=== PATIENT | male | born 1955 | race Native Hawaiian/Other Pacific Islander ===

== ENCOUNTER 2018-11-06 10:28 | Outpatient (CLI) | payer OTHER ==
[2018-11-06 10:55] LABS: PLATELET COUNT 281 K/uL (142-355)
[2018-11-06 11:27] LABS: POTASSIUM 3.6 mmol/L (3.6-5.2)
== END 2018-11-06 20:38 | disposition home or self-care (01) ==
LOC: LABW 10:28
PROVIDERS: Family Medicine
DX: E78.00 Pure hypercholesterolemia, unspecified (principal); K21.9 Gastro-esophageal reflux disease without esophagitis; I10 Essential (primary) hypertension; E55.9 Vitamin D deficiency, unspecified
CPT/HCPCS: 36415; 80053; 80061; 82306; 83735; 84154; 84439; 84443; 85027

== ENCOUNTER 2021-04-25 09:01 | Outpatient (CLI) | payer OTHER | END 2021-04-25 19:21 | disposition home or self-care (01) | LOC: LAB 09:01 | PROVIDERS: ATTEND Family Medicine | DX: Z20.822 Contact with and (suspected) exposure to COVID-19 (principal) | CPT/HCPCS: 87635; G2023; U0003 ==